=== PATIENT | female | born 1990 | race African-American/Black ===

== ENCOUNTER 2016-12-10 19:59 | Emergency (ER) | payer OTHER ==
[~2016-12-10] VITALS: Ht 157.5 cm; Wt 54.4 kg
[~2016-12-10 19:59] MED LIST: AZAT50TA PO; FLUT9.9S NS; HYDR-971 PO
[2016-12-10 20:29] VITALS: BP 136/67
[2016-12-10] MEDS ORDERED: METH4TAB2 PO (21:02)
[2016-12-10] MEDS ORDERED: TRAM50TA PO (21:02)
--- NOTE | 2016-12-10 21:03 | PHYS DOC ---
Past Medical History Past Medical History: Asthma, Other Additional Past Medical Histor: RHEMATOID ARTHRITIS Past Surgical History: Tonsillectomy Alcohol Use: None Drug Use: None Adult General Chief Complaint Chief Complaint: GENERALIZED BODY ACHES HPI HPI Patient is a 26 year old female presents to the emergency department with complaints of exacerbation of her rheumatoid arthritis. Patient states that she weaned off of her prednisone last week and her pain elevated. She states that she has no fever, nausea, vomiting, chest pain, abdominal pain Review of Systems Review of Systems Constitutional: Denies fever or chills [] Eyes: Denies change in visual acuity, redness, or eye pain [] HENT: Denies nasal congestion or sore throat [] Respiratory: Denies cough or shortness of breath [] Cardiovascular: No additional information not addressed in HPI [] GI: Denies abdominal pain, nausea, vomiting, bloody stools or diarrhea [] : Denies dysuria or hematuria [] Musculoskeletal: Arthralgia Integument: Denies rash or skin lesions [] Neurologic: Denies headache, focal weakness or sensory changes [] Endocrine: Denies polyuria or polydipsia [] Allergies Allergies Allergies Coded Allergies Type Severity Reaction Last Updated Verified No Known Drug Allergies 11/14/14 No Physical Exam Physical Exam Constitutional: Well developed, well nourished, no acute distress, non-toxic appearance. [] HENT: Normocephalic, atraumatic, bilateral external ears normal, oropharynx moist, no oral exudates, nose normal. [] Eyes: PERRLA, EOMI, conjunctiva normal, no discharge. [] Neck: Normal range of motion, no tenderness, supple, no stridor. [] Cardiovascular:Heart rate regular rhythm, no murmur [] Lungs & Thorax: Bilateral breath sounds clear to auscultation [] Abdomen: Bowel sounds normal, soft, no tenderness, no masses, no pulsatile masses. [] Skin: Warm, dry, no erythema, no rash. [] Back: No tenderness, no CVA tenderness. [] Extremities: No swelling to joints, no erythema. She does have chronic deformity to her hands at the joints. Neurovascular is intact distally. Neurologic: Alert and oriented X 3, normal motor function, normal sensory function, no focal deficits noted. [] Psychologic: Affect normal, judgement normal, mood normal. [] Current Patient Data Vital Signs Vital Signs Date Time Temp Pulse Resp B/P (MAP) Pulse Ox O2 Delivery O2 Flow Rate FiO2 12/10/16 20:29 98.1 71 16 100 Room Air 98.1 EKG EKG [] Radiology/Procedures Radiology/Procedures [] Course & Med Decision Making Course & Med Decision Making Pertinent Labs and Imaging studies reviewed. (See chart for details) [] Dragon Disclaimer Dragon Disclaimer This electronic medical record was generated, in whole or in part, using a voice recognition dictation system. Departure Departure Impression: Primary Impression: Polyarthralgia Disposition: HOME, SELF-CARE Condition: STABLE Referrals: UNKNOWN PCP NAME (PCP) Patient Instructions: Chronic Pain Scripts Tramadol Hcl (TRAMADOL HCL) 50 Mg Tablet 1 TAB PO PRN Q6HRS, #12 TAB Prov: VINCE TONEY APRN 12/10/16 Methylprednisolone (MEDROL) 4 Mg Tab.ds.pk 1 PKG PO UD, #1 PKG Prov: VINCE TONEY APRN 12/10/16 VINCE TONEY APRN Dec 10, 2016 21:03
== END 2016-12-10 21:10 | disposition home or self-care (01) ==
LOC: ER 19:59
DX: M25.50 Pain in unspecified joint (principal); M06.9 Rheumatoid arthritis, unspecified; J45.909 Unspecified asthma, uncomplicated
CPT/HCPCS: 99283

== ENCOUNTER 2017-02-20 16:18 | Emergency (ER) | payer OTHER ==
[~2017-02-20] VITALS: Ht 157.5 cm; Wt 56.7 kg
[~2017-02-20 16:18] MED LIST changes: +METH4TAB2 PO; +TRAM50TA PO
[2017-02-20] MEDS ORDERED: DIPHTH,PERTUSS(ACELL),TET TOX 0.5 ML DISP.SYRIN. VAX IM ONE (17:15)
[2017-02-20] MEDS ORDERED: CEPH500T PO (17:20)
--- NOTE | 2017-02-20 17:21 | PHYS DOC ---
Past Medical History Past Medical History: Asthma, Other Additional Past Medical Histor: RHEMATOID ARTHRITIS Past Surgical History: Tonsillectomy Alcohol Use: None Drug Use: None Adult General Chief Complaint Chief Complaint: ABSCESS HPI HPI Patient is a 26 year old female presents to the emergency department stating that she was out on the porch on Sunday and feels that she was bit by something on her right upper abdomen. She states that she has some discomfort in the area appears to be red no drainage or discharge noted patient is unable to provide her last tetanus immunization. Patient denies any fever, chills or any nausea vomiting. Review of Systems Review of Systems Constitutional: Denies fever or chills [] Eyes: Denies change in visual acuity, redness, or eye pain [] HENT: Denies nasal congestion or sore throat [] Respiratory: Denies cough or shortness of breath [] Cardiovascular: No additional information not addressed in HPI [] GI: Denies abdominal pain, nausea, vomiting, bloody stools or diarrhea [] : Denies dysuria or hematuria [] Musculoskeletal: Denies back pain or joint pain [] Integument: Denies rash or skin lesions. Complaint of insect bite to the right upper abdomen area Neurologic: Denies headache, focal weakness or sensory changes [] Endocrine: Denies polyuria or polydipsia [] Allergies Allergies Allergies Coded Allergies Type Severity Reaction Last Updated Verified No Known Drug Allergies 11/14/14 No Physical Exam Physical Exam Constitutional: Well developed, well nourished, no acute distress, non-toxic appearance. [] HENT: Normocephalic, atraumatic, bilateral external ears normal, oropharynx moist, no oral exudates, nose normal. [] Eyes: PERRLA, EOMI, conjunctiva normal, no discharge. [] Neck: Normal range of motion, no tenderness, supple, no stridor. [] Cardiovascular:Heart rate regular rhythm, no murmur [] Lungs & Thorax: Bilateral breath sounds clear to auscultation [] Skin: Warm, dry, no erythema, no rash. Patient with 2 red areas noted to the right upper abdomen area. No drainage or discharge noted, warmth noted. Extremities: No tenderness, no cyanosis, no clubbing, ROM intact, no edema. [] Neurologic: Alert and oriented X 3, normal motor function, normal sensory function, no focal deficits noted. [] Psychologic: Affect normal, judgement normal, mood normal. [] Current Patient Data Vital Signs Vital Signs Date Time Temp Pulse Resp B/P (MAP) Pulse Ox O2 Delivery O2 Flow Rate FiO2 02/20/17 16:29 98.9 84 18 99 Room Air 98.9 Lab Values Laboratory Tests Test 02/20/17 16:33 POC Urine HCG, Qualitative Hcg negative (Negative) EKG EKG [] Radiology/Procedures Radiology/Procedures [] Course & Med Decision Making Course & Med Decision Making Pertinent Labs and Imaging studies reviewed. (See chart for details) Patient will be provided with a tetanus immunization here in the emergency department. She'll be placed on Keflex. Recommendations for Tylenol or ibuprofen for pain and discomfort. Recommended keeping the area clean dry and cool. Patient will be discharged home in stable condition signs symptoms to return back to emergency department as been provided. All questions and concerns been answered at patient's bedside. Patient agrees with discharge instructions treatment regimens and follow-up recommendations. [] Dragon Disclaimer Dragon Disclaimer This electronic medical record was generated, in whole or in part, using a voice recognition dictation system. Departure Departure Impression: Primary Impression: Cellulitis Disposition: HOME, SELF-CARE Condition: STABLE Referrals: UNKNOWN PCP NAME (PCP) Patient Instructions: Cellulitis, [id number] Additional Instructions: Activity as tolerated. Tylenol or ibuprofen for pain and discomfort. Antibiotics as prescribed. Clean the site with soap and water and apply antibiotic ointment twice a day. Keep the area clean dry and cool. Follow-up primary care physician in the next week. Return back to emergency prior signs symptoms of become worse. Scripts Cephalexin (CEPHALEXIN) 500 Mg Tablet 1 TAB PO BID, #20 TAB Prov: RAZ SANTAMARIA HOLE DIGGER OPERATOR 02/20/17 Problem Qualifiers Primary Impression: Cellulitis Site of cellulitis: unspecified site Qualified Codes: L03.90 - Cellulitis, unspecified RAZ SANTAMARIA HOLE DIGGER OPERATOR Feb 20, 2017 17:21
[2017-02-20 17:30] VITALS: BP 119/68
== END 2017-02-20 17:30 | disposition home or self-care (01) ==
LOC: ER 16:18
DX: L03.311 Cellulitis of abdominal wall (principal); J45.909 Unspecified asthma, uncomplicated; M06.9 Rheumatoid arthritis, unspecified
CPT/HCPCS: 81025; 90471; 90715; 99283-25

== ENCOUNTER 2017-05-08 10:42 | Emergency (ER) | payer OTHER ==
[~2017-05-08 10:42] MED LIST changes: +CEPH500T PO
[2017-05-08 11:17] LABS: BILIRUBIN,URINE NEGATIVE (NEG); GLUCOSE,URINE NEGATIVE (NEG); NITRITE,URINE NEGATIVE (NEG); PROTEIN,URINE NEGATIVE (NEG-TRACE)
[2017-05-08 11:25] LABS: RBC,URINE OCC /HPF (0-2)
[2017-05-08 11:26] LABS: BACTERIA,URINE FEW /HPF (0-FEW); SQUAMOUS EPITHELIAL CELL,UR MANY /LPF
[2017-05-08] MEDS ORDERED: METR500T PO (12:42)
--- NOTE | 2017-05-08 13:08 | PHYS DOC ---
Past Medical History Past Medical History: Asthma, Other Additional Past Medical Histor: RHEMATOID ARTHRITIS Past Surgical History: Tonsillectomy Alcohol Use: None Drug Use: None Adult General Chief Complaint Chief Complaint: vaginal discharge HPI HPI Patient is a 26 year old female who presents with vaginal discharge. Pt reports two days of symptoms, no pain, no N/V. Pt is sexually active with 1 partner, uses condoms, does have concerns for possible STD. Review of Systems Review of Systems Constitutional: Denies fever or chills [] Eyes: Denies change in visual acuity, redness, or eye pain [] HENT: Denies nasal congestion or sore throat [] Respiratory: Denies cough or shortness of breath [] Cardiovascular: denies chest pain GI: Denies abdominal pain, nausea, vomiting, bloody stools or diarrhea [] : Denies dysuria or hematuria [] Musculoskeletal: Denies back pain or joint pain [] Integument: Denies rash or skin lesions [] Neurologic: Denies headache, focal weakness or sensory changes [] Allergies Allergies Allergies Coded Allergies Type Severity Reaction Last Updated Verified No Known Drug Allergies 11/14/14 No Physical Exam Physical Exam Constitutional: Well developed, well nourished, no acute distress, non-toxic appearance. [] HENT: Normocephalic, atraumatic, bilateral external ears normal, oropharynx moist, no oral exudates, nose normal. [] Eyes: PERRLA, EOMI, conjunctiva normal, no discharge. [] Neck: Normal range of motion, no tenderness, supple, no stridor. [] Cardiovascular:Heart rate regular rhythm Lungs & Thorax: no respiratory distress Abdomen: soft, no tenderness, no masses, no pulsatile masses. [] Skin: Warm, dry, no erythema, no rash. [] : mild discharge, closed cervix, no CMT, no adnexal mass or ttp, no bleeding Extremities: No tenderness, no cyanosis, no clubbing, ROM intact, no edema. [] Neurologic: Alert and oriented X 3, normal motor function, normal sensory function, no focal deficits noted. [] Psychologic: Affect normal, judgement normal, mood normal. [] Current Patient Data Vital Signs Vital Signs Date Time Temp Pulse Resp B/P (MAP) Pulse Ox O2 Delivery O2 Flow Rate FiO2 05/08/17 11:05 98.6 82 16 100 Room Air 98.6 Lab Values Laboratory Tests Test 05/08/17 11:00 05/08/17 11:03 Urine Collection Type Unknown Urine Color Yellow Urine Clarity Clear Urine pH 7.0 Urine Specific [place] 1.025 Urine Protein Negative mg/dL (NEG-TRACE) Urine Glucose (UA) Negative mg/dL (NEG) Urine Ketones (Stick) Negative mg/dL (NEG) Urine Blood Negative (NEG) Urine Nitrite Negative (NEG) Urine Bilirubin Negative (NEG) Urine Urobilinogen Dipstick 1.0 mg/dL (0.2 mg/dL) Urine Leukocyte Esterase Negative (NEG) Urine RBC Occ /HPF (0-2) Urine WBC 1-4 /HPF (0-4) Urine Squamous Epithelial Cells Many /LPF Urine Bacteria Few /HPF (0-FEW) Urine Mucus Marked /LPF POC Urine HCG, Qualitative Hcg negative (Negative) Microbiology 05/08/17 Wet Prep - Final, Complete EKG EKG [] Radiology/Procedures Radiology/Procedures [] Course & Med Decision Making Course & Med Decision Making Pertinent Labs and Imaging studies reviewed. (See chart for details) wet mount + bv, pt dc'd with flagyl rx, instructed to f/u with pcp, referral sheet given. Dragon Disclaimer Dragon Disclaimer This electronic medical record was generated, in whole or in part, using a voice recognition dictation system. Departure Departure Impression: Primary Impression: Bacterial vaginosis Disposition: 01 HOME, SELF-CARE Condition: STABLE Referrals: UNKNOWN PCP NAME (PCP) See referral sheet to schedule follow-up with a primary care physician to ensure your symptoms are well controlled. Return for worsening symptoms. Take antibiotics until completed. Patient Instructions: Bacterial Vaginosis, [id number] Scripts Metronidazole (FLAGYL) 500 Mg Tablet 1 TAB PO BID, #14 TAB Prov: MANNIE WADE MD 05/08/17 MANNIE WADE MD May 08, 2017 13:08
== END 2017-05-08 13:10 | disposition home or self-care (01) ==
LOC: ER 10:42
DX: N76.0 Acute vaginitis (principal); B96.89 Other specified bacterial agents as the cause of diseases classified elsewhere; J45.909 Unspecified asthma, uncomplicated; M06.9 Rheumatoid arthritis, unspecified
CPT/HCPCS: 81001; 81025; 87491; 87591; 99284; Q0111

== ENCOUNTER 2018-05-25 16:50 | Emergency (ER) | payer MEDICARE, OTHER ==
[~2018-05-25] VITALS: Ht 157.5 cm; Wt 59.0 kg
[~2018-05-25 16:50] MED LIST changes: +HYDR-3164 PO; -HYDR-971 PO; +METR500T PO
[2018-05-25 17:50] VITALS: BP 126/72
[2018-05-25 18:40] LABS: BILIRUBIN,URINE NEGATIVE (NEG); CLARITY,URINE CLOUDY; COLOR,URINE YELLOW; NITRITE,URINE NEGATIVE (NEG); PH,URINE 8.5; PROTEIN,URINE 30 mg/dL (NEG-TRACE)
[2018-05-25 18:55] LABS: BACTERIA,URINE MANY /HPF (0-FEW); SQUAMOUS EPITHELIAL CELL,UR MANY /LPF; WBC,URINE TNTC /HPF (0-4)
--- NOTE | 2018-05-25 19:07 | PHYS DOC ---
Past Medical History Past Medical History: Asthma, Other Additional Past Medical Histor: RHEMATOID ARTHRITIS Past Surgical History: Tonsillectomy Additional Information: 5 CIGARETTES PER DAY Alcohol Use: None Drug Use: None Adult General Chief Complaint Chief Complaint: VAGINAL PROBLEM HPI HPI Patient is a 27 year old female who presents with vaginal itching with watery discharge and this itching that is its worse at night. Patient states she's tried Monistat but did not help. Her period ended on Sunday. She is sexually active but states she does use condoms. Review of Systems Review of Systems Constitutional: Denies fever or chills [] Eyes: Denies change in visual acuity, redness, or eye pain [] HENT: Denies nasal congestion or sore throat [] Respiratory: Denies cough or shortness of breath [] Cardiovascular: No additional information not addressed in HPI [] GI: Denies abdominal pain, nausea, vomiting, bloody stools or diarrhea [] : Vaginal itching and discharge. Denies dysuria or hematuria [] Musculoskeletal: Denies back pain or joint pain [] Integument: Denies rash or skin lesions [] Neurologic: Denies headache, focal weakness or sensory changes [] Endocrine: Denies polyuria or polydipsia [] All other systems were reviewed and found to be within normal limits, except as documented in this note. Current Medications Current Medications Current Medications Medications (Trade) Dose Ordered Sig/Jessica Start Time Stop Time Status Last Admin Dose Admin Azithromycin (Zithromax) 1,000 mg 1X ONCE 05/25/18 19:15 05/25/18 19:16 05/25/18 19:10 1,000 MG Ceftriaxone Sodium (Rocephin Im) 250 mg 1X ONCE 05/25/18 19:15 05/25/18 19:16 05/25/18 19:10 250 MG Allergies Allergies Allergies Coded Allergies Type Severity Reaction Last Updated Verified No Known Drug Allergies 11/14/14 No Physical Exam Physical Exam Constitutional: Well developed, well nourished, no acute distress, non-toxic appearance. [] HENT: Normocephalic, atraumatic, bilateral external ears normal, oropharynx moist, no oral exudates, nose normal. [] Eyes: PERRLA, EOMI, conjunctiva normal, no discharge. [] Neck: Normal range of motion, no tenderness, supple, no stridor. [] Cardiovascular:Heart rate regular rhythm, no murmur [] Lungs & Thorax: Bilateral breath sounds clear to auscultation [] Abdomen: Vaginal white/ yoo, watery vaginal discharge. Bowel sounds normal, soft , no tenderness, no masses, no pulsatile masses. [] Skin: Warm, dry, no erythema, no rash. [] Back: No tenderness, no CVA tenderness. [] Extremities: No tenderness, no cyanosis, no clubbing, ROM intact, no edema. [] Neurologic: Alert and oriented X 3, normal motor function, normal sensory function, no focal deficits noted. [] Psychologic: Affect normal, judgement normal, mood normal. [] Current Patient Data Vital Signs Vital Signs Date Time Temp Pulse Resp B/P (MAP) Pulse Ox O2 Delivery O2 Flow Rate FiO2 05/25/18 17:50 98.0 84 14 126/72 (90) 99 Room Air 98.0 Lab Values Laboratory Tests Test 05/25/18 18:30 05/25/18 18:34 Urine Collection Type Unknown Urine Color Yellow Urine Clarity Cloudy Urine pH 8.5 Urine Specific [place] >=1.030 Urine Protein 30 mg/dL (NEG-TRACE) Urine Glucose (UA) Negative mg/dL (NEG) Urine Ketones (Stick) Negative mg/dL (NEG) Urine Blood Negative (NEG) Urine Nitrite Negative (NEG) Urine Bilirubin Negative (NEG) Urine Urobilinogen Dipstick 1.0 mg/dL (0.2 mg/dL) Urine Leukocyte Esterase Large (NEG) Urine RBC 6-10 /HPF (0-2) Urine WBC Tntc /HPF (0-4) Urine Squamous Epithelial Cells Many /LPF Urine Bacteria Many /HPF (0-FEW) Urine Mucus Marked /LPF POC Urine HCG, Qualitative Hcg negative (Negative) Microbiology 05/25/18 Wet Prep - Final, Complete EKG EKG [] Radiology/Procedures Radiology/Procedures [] Course & Med Decision Making Course & Med Decision Making Patient is a 27 year old female who presents with vaginal itching with watery discharge and this itching that is its worse at night. Patient states she's tried Monistat but did not help. Her period ended on Sunday. She is sexually active but states she does use condoms. A pelvic exam was attempted 4 times and patient was very tense states it did not hurt but she is very tense and the speculum could not go all the way in due to this. I did however see watery white /yoo in color vaginal discharged. Patient states that the exam did not hurt but she is a hard time relaxing. BiManual exam was negative for any cervical motion pain and did not feel any foreign objects in the vaginal vault. I could not however see the cervix with speculum due to patient being very tense. Afebrile. Abdomen is soft and nontender. She denies any abdominal pain or dysuria. She denies any nausea vomiting or running fevers at home. Patient has chosen to be treated prophylactically for sexually transmitted diseases today. I did send off a culture for chlamydia and gonorrhea and I did do a wet mount today. Wet mount is positive for Trichomonas. She'll be treated with Flagyl. Patient is notified that she'll be called in 48 hours if gonorrhea or chlamydia comes back positive. The patient begins having any intense abdominal pain starts running a fever and she needs to return back to the ED. Dragon Disclaimer Dragon Disclaimer This electronic medical record was generated, in whole or in part, using a voice recognition dictation system. Departure Departure Impression: Primary Impression: Sexually transmitted disease Disposition: 01 HOME, SELF-CARE Condition: STABLE Referrals: UNKNOWN PCP NAME (PCP) Patient Instructions: Sexually Transmitted Disease Additional Instructions: Return to the ED if he began having pelvic pain, fever, vomiting. Do not drink any alcohol while on the medication they have been prescribed as it will make you very sick. Either follow-up with a stitcher around or your primary care. Scripts Metronidazole (METRONIDAZOLE) 500 Mg Tablet 1 TAB PO BID, #14 TAB Prov: RAZ LINDA APRN 05/25/18 RAZ LINDA APRN May 25, 2018 19:07
[2018-05-25] MEDS ORDERED: cefTRIAXone IM 250 MG VIAL IM ONE (19:15)
[2018-05-25] MEDS ORDERED: AZITHROMYCIN 250 MG TABLET. PO ONE (19:15)
[2018-05-25] MEDS ORDERED: METR-84 PO (19:19)
[2018-05-27 19:13] LABS: GC PROBE Negative (Negative)
== END 2018-05-25 19:30 | disposition home or self-care (01) ==
LOC: ER 16:50
DX: A64 Unspecified sexually transmitted disease (principal); J45.909 Unspecified asthma, uncomplicated; Z90.89 Acquired absence of other organs; F17.210 Nicotine dependence, cigarettes, uncomplicated
CPT/HCPCS: 81001; 81025; 87491; 87591; 96372; 99283; J0696; Q0111; Q0144

== ENCOUNTER 2019-05-11 04:52 | Emergency (ER) | payer MEDICARE, OTHER ==
[~2019-05-11] VITALS: Ht 157.5 cm; Wt 53.1 kg
[~2019-05-11 04:52] MED LIST changes: +METR-34 PO
[2019-05-11 05:10] VITALS: BP 142/63
[2019-05-11 05:43] LABS: BASO # 0.1 x10^3/uL (0.0-0.2); BASO % 1 % (0-3); EOS # 0.2 x10^3/uL (0.0-0.7); EOS % 2 % (0-3); HEMATOCRIT 32.5 % (36.0-47.0); HEMOGLOBIN 10.3 g/dL (12.0-15.5); LYMPH # 1.9 x10^3/uL (1.0-4.8); LYMPH % 22 % (24-48); MEAN CORPUSCULAR HEMOGLOBIN 25 pg (25-35); MEAN CORPUSCULAR HGB CONC 32 g/dL (31-37); MEAN CORPUSCULAR VOLUME 78 fL (79-100); MONO # 0.6 x10^3/uL (0.0-1.1); MONO % 7 % (0-9); NEUT # 6.2 x10^3/uL (1.8-7.7); NEUT % 69 % (31-73); PLATELET COUNT 207 x10^3/uL (140-400); RED BLOOD COUNT 4.16 x10^6/uL (3.50-5.40); RED CELL DISTRIBUTION WIDTH 20.1 % (11.5-14.5)
--- NOTE | 2019-05-11 05:47 | PHYS DOC ---
Past Medical History Past Medical History: Asthma, Other Additional Past Medical Histor: RHEMATOID ARTHRITIS (JIGNESH BHAKTA DO) Past Surgical History: Tonsillectomy (JIGNESH BHAKTA DO) Alcohol Use: None Drug Use: None (JIGNESH BHAKTA DO) Adult General Chief Complaint Chief Complaint: ABDOMINAL PAIN IN HPI HPI Patient is a 28 year old G5, P4, estimated 6 week gestation AA female who presents with migratory pelvic pain, cramping 2 days. Pain is sharp and intense for brief periods time. White vaginal discharge and vaginal spotting last week. No fever chills, sweats, flank pain. No other acute symptoms or complaints[] (JIGNESH BHAKTA DO) Review of Systems Review of Systems Review of symptoms as per history of present illness. All other review symptoms are negative. All other systems were reviewed and found to be within normal limits, except as documented in this note. (JIGNESH BHAKTA DO) Allergies Allergies Allergies Coded Allergies Type Severity Reaction Last Updated Verified No Known Drug Allergies 11/14/14 No (JASMYN NOVAK MD) Physical Exam Physical Exam Constitutional: Well developed, well nourished, no acute distress, non-toxic appearance. [] HENT: Normocephalic, atraumatic, bilateral external ears normal, oropharynx moist, no oral exudates, nose normal. [] Eyes: PERRLA, EOMI, conjunctiva normal, no discharge. [] Neck: Normal range of motion, no tenderness, supple, no stridor. [] Cardiovascular:Heart rate regular rhythm, no murmur [] Lungs & Thorax: Bilateral breath sounds clear to auscultation [] Abdomen: Bowel sounds normal, soft, no tenderness. [] : Sternal genitalia, normal, vaginal, cheeselike discharge with thin siddiqi mucus at cervix, min ttp. [] Back: No tenderness, no CVA tenderness. [] Extremities: No tenderness, no cyanosis, no clubbing, ROM intact, no edema. [] Neurologic: Alert and oriented X 3, normal motor function, normal sensory function, no focal deficits noted. [] Psychologic: Affect normal, judgement normal, mood normal. [] (JIGNESH BHAKTA DO) Current Patient Data Vital Signs Vital Signs Date Time Temp Pulse Resp B/P (MAP) Pulse Ox O2 Delivery O2 Flow Rate FiO2 05/11/19 05:10 97.9 83 14 142/63 (89) 100 Room Air 97.9 (JASMYN NOVAK MD) Lab Values Laboratory Tests Test 05/11/19 05:10 05/11/19 05:30 POC Urine HCG, Qualitative Hcg positive (Negative) White Blood Count 9.0 x10^3/uL (4.0-11.0) Red Blood Count 4.16 x10^6/uL (3.50-5.40) Hemoglobin 10.3 g/dL (12.0-15.5) L Hematocrit 32.5 % (36.0-47.0) L Mean Corpuscular Volume 78 fL (79-100) L Mean Corpuscular Hemoglobin 25 pg (25-35) Mean Corpuscular Hemoglobin Concent 32 g/dL (31-37) Red Cell Distribution Width 20.1 % (11.5-14.5) H Platelet Count 207 x10^3/uL (140-400) Neutrophils (%) (Auto) 69 % (31-73) Lymphocytes (%) (Auto) 22 % (24-48) L Monocytes (%) (Auto) 7 % (0-9) Eosinophils (%) (Auto) 2 % (0-3) Basophils (%) (Auto) 1 % (0-3) Neutrophils # (Auto) 6.2 x10^3/uL (1.8-7.7) Lymphocytes # (Auto) 1.9 x10^3/uL (1.0-4.8) Monocytes # (Auto) 0.6 x10^3/uL (0.0-1.1) Eosinophils # (Auto) 0.2 x10^3/uL (0.0-0.7) Basophils # (Auto) 0.1 x10^3/uL (0.0-0.2) Platelet Estimate Pending Urine Collection Type Unknown Urine Color Yellow Urine Clarity Clear Urine pH 6.0 Urine Specific [place] 1.020 Urine Protein Negative mg/dL (NEG-TRACE) Urine Glucose (UA) Negative mg/dL (NEG) Urine Ketones (Stick) 15 mg/dL (NEG) Urine Blood Negative (NEG) Urine Nitrite Negative (NEG) Urine Bilirubin Negative (NEG) Urine Urobilinogen Dipstick 1.0 mg/dL (0.2 mg/dL) Urine Leukocyte Esterase Negative (NEG) Urine RBC 0 /HPF (0-2) Urine WBC 0 /HPF (0-4) Urine Squamous Epithelial Cells Mod /LPF Urine Bacteria 0 /HPF (0-FEW) Urine Mucus Mod /LPF Maternal Serum HCG Beta Subunit 9113 mIU/mL (0-5) H Sodium Level 137 mmol/L (136-145) Potassium Level 3.9 mmol/L (3.5-5.1) Chloride Level 103 mmol/L (98-107) Carbon Dioxide Level 23 mmol/L (21-32) Anion Gap 11 (6-14) Blood Urea Nitrogen 10 mg/dL (7-20) Creatinine 0.6 mg/dL (0.6-1.0) Estimated GFR (Cockcroft-Gault) 144.0 Glucose Level 82 mg/dL (70-99) Calcium Level 8.8 mg/dL (8.5-10.1) Laboratory Tests 05/11/19 05:30 Laboratory Tests 05/11/19 05:30 Microbiology 05/11/19 Wet Prep - Final, Complete (JASMYN NOVAK MD) EKG EKG [] (JIGNESH BHAKTA DO) Radiology/Procedures Radiology/Procedures [OB US:] (JIGNESH BHAKTA DO) Radiology/Procedures [facility] [address] [place] [address] IMAGING REPORT Signed PATIENT: RADHA HWANG ACCOUNT: [id number] : 1990 LOCATION: ER AGE: 28 SEX: F EXAM STATUS: REG ER ORD. PHYSICIAN: JIGNESH BHAKTA DO REASON: pelvic pain PROCEDURE: OB <14 WKS W/TV Examination: Obstetric ultrasound less than 14 weeks HISTORY: History of pelvic pain COMPARISON: None available. FINDINGS: The uterus measures 11.0 x 6.4 x 6.0 cm. Simple free fluid identified in the cul-de-sac. The right ovary measures 3.0 x 1.8 x 1.6 cm. The left ovary measures 3.5 x 2.2 x 1.6 cm. Given LMP 03/29/2019. Cystic structure identified in the uterus could be the gestational sac or pseudogestational sac measuring 0.82 cm corresponding to 5 weeks and 4 days. A pole or yolk sac is not identified. Clinical age of 6 weeks and 1 day with estimated date of delivery 01/03/2020 by LMP. Ultrasound age is 5 weeks and 4 days with estimated date of delivery by ultrasound 01/07/2020. IMPRESSION: 1. Cystic structure identified in the uterus probably intrauterine gestational sac without pole, possibly early and less likely a pseudogestational sac of ectopic . An ectopic gestation sac is not identified. Close interval follow-up examination and follow-up serial quantitative beta-hCG levels is recommended. Electronically signed by: Zaki Carreon MD (05/11/2019 7:03 AM) [facility] DICTATED and SIGNED BY: ZAKI CARREON MD DATE: 05/11/19 07 (JASMYN NOVAK MD) Course & Med Decision Making Course & Med Decision Making Pertinent Labs and Imaging studies reviewed. (See chart for details) [Labs, ultrasound pending. Care will be endorsed to Dr. Novak at 06:00 for management and disposition.] (JIGNESH BHAKTA DO) Course & Med Decision Making Evaluation of patient in ER showed 28-year-old female patient at 6 weeks of gestation with complaining of abdominal pain without vaginal bleeding. Patient had hCG level of 9100 and ultrasound showed intrauterine gestational sac without heart rate or ectopic . Patient was advised to follow up with her [employer] for repeat hCG level in 48 hours and return to ER if not getting worse. (JASMYN NOVAK MD) Dragon Disclaimer Dragon Disclaimer This electronic medical record was generated, in whole or in part, using a voice recognition dictation system. (JIGNESH BHAKTA DO) Departure Departure Impression: Primary Impression: Abdominal pain during Disposition: HOME, SELF-CARE (at 0730) Condition: STABLE Referrals: UNKNOWN PCP NAME (PCP) ANAYELI SAGE Jr, MD Patient Instructions: Abdominal Pain During Additional Instructions: Follow up with your [employer] in 2 days for repeating blood test for hCG level(currently is 9100) Drink plenty of liquids Return to ER if not getting better May take Tylenol as needed for pain Problem Qualifiers Primary Impression: Abdominal pain during Trimester: first trimester Qualified Codes: O26.891 - Other specified related conditions, first trimester; R10.9 - Unspecified abdominal pain JIGNESH BHAKTA DO May 11, 2019 05:47 JASMYN NOVAK MD May 11, 2019 07:32
[2019-05-11 05:54] LABS: CALCIUM 8.8 mg/dL (8.5-10.1); CREATININE 0.6 mg/dL (0.6-1.0); POTASSIUM 3.9 mmol/L (3.5-5.1)
[2019-05-11 06:17] LABS: BACTERIA,URINE 0 /HPF (0-FEW); BILIRUBIN,URINE NEGATIVE (NEG); CLARITY,URINE CLEAR; COLOR,URINE YELLOW; NITRITE,URINE NEGATIVE (NEG); PROTEIN,URINE NEGATIVE (NEG-TRACE); RBC,URINE 0 /HPF (0-2); SQUAMOUS EPITHELIAL CELL,UR MOD /LPF; WBC,URINE 0 /HPF (0-4)
--- NOTE | 2019-05-11 07:05 | RAD ---
Examination: Obstetric ultrasound less than 14 weeks HISTORY: History of pelvic pain COMPARISON: None available. FINDINGS: The uterus measures 11.0 x 6.4 x 6.0 cm. Simple free fluid identified in the cul-de-sac. The right ovary measures 3.0 x 1.8 x 1.6 cm. The left ovary measures 3.5 x 2.2 x 1.6 cm. Given LMP 03/29/2019. Cystic structure identified in the uterus could be the gestational sac or pseudogestational sac measuring 0.82 cm corresponding to 5 weeks and 4 days. A pole or yolk sac is not identified. Clinical age of 6 weeks and 1 day with estimated date of delivery 01/03/2020 by LMP. Ultrasound age is 5 weeks and 4 days with estimated date of delivery by ultrasound 01/07/2020. IMPRESSION: 1. Cystic structure identified in the uterus probably intrauterine gestational sac without pole, possibly early and less likely a pseudogestational sac of ectopic . An ectopic gestation sac is not identified. Close interval follow-up examination and follow-up serial quantitative beta-hCG levels is recommended. Electronically signed by: Zaki Carreon MD (05/11/2019 7:03 AM) [facility]
[2019-05-11 14:26] LABS: ANISOCYTOSIS MOD; HYPOCHROMIA SLIGHT; MICROCYTOSIS SLIGHT; OVALOCYTES FEW; PLT ESTIMATE ADEQUATE (ADEQUATE); POIKILOCYTOSIS SLIGHT; SCHISTOCYTES FEW
[2019-05-13 23:08] LABS: GC PROBE Negative (Negative)
== END 2019-05-11 07:40 | disposition home or self-care (01) ==
LOC: ER 04:52
DX: O26.891 Other specified pregnancy related conditions, first trimester (principal); R10.9 Unspecified abdominal pain; R10.2 Pelvic and perineal pain; O99.511 Diseases of the respiratory system complicating pregnancy, first trimester; J45.909 Unspecified asthma, uncomplicated; Z3A.01 Less than 8 weeks gestation of pregnancy
CPT/HCPCS: 36415; 76801; 76817; 80048; 81001; 81025; 84702; 85025; 86901; 87491; 87591; 99285; Q0111

== ENCOUNTER 2019-10-18 20:20 | Emergency (ER) | payer MEDICARE, OTHER ==
[~2019-10-18] VITALS: Ht 157.5 cm; Wt 57.7 kg
[2019-10-18] MEDS ORDERED: ERYTHROMYCIN 0.5% OPHTH OINTMENT 1GM TUBE. OS STA (20:35)
[2019-10-18 20:36] VITALS: BP 131/66
--- NOTE | 2019-10-18 20:38 | PHYS DOC ---
Past Medical History Past Medical History: Asthma, Other Additional Past Medical Histor: RHEMATOID ARTHRITIS Past Surgical History: Tonsillectomy Smoking Status: Current Every Day Smoker Alcohol Use: None Drug Use: None General Adult EDM: Chief Complaint: EYE PROBLEMS HPI: HPI: Patient is a 28 year old female who presents with complaint of left eye pain and redness for the last 2 days. Patient indicates that the last 2 mornings her eye has been crusted over. She denies any fever. She denies any cough, shortness of breath, nausea or vomiting. Patient denies any change in vision. [] Review of Systems: Review of Systems: Constitutional: Denies fever or chills. [] Eyes: Denies change in visual acuity. Positive left eye pain and redness. [] HENT: Denies nasal congestion or sore throat. [] Respiratory: Denies cough or shortness of breath. [] Cardiovascular: Denies chest pain or edema. [] Heart Score: Risk Factors: Risk Factors: DM, Current or recent (<one month) smoker, HTN, HLP, family hist ory of CAD, obesity. Risk Scores: Score 0 - 3: 2.5% MACE over next 6 weeks - Discharge Home Score 4 - 6: 20.3% MACE over next 6 weeks - Admit for Clinical Observation Score 7 - 10: 72.7% MACE over next 6 weeks - Early Invasive Strategies Allergies: Allergies: Allergies Coded Allergies Type Severity Reaction Last Updated Verified No Known Drug Allergies 11/14/14 No Physical Exam: PE: Constitutional: Well developed, well nourished, no acute distress, non-toxic appearance. [] HENT: Normocephalic, atraumatic, bilateral external ears normal, oropharynx moist, no oral exudates, nose normal. [] Eyes: PERRLA, EOMI, conjunctive is injected with purulent exudate. [] Neck: Normal range of motion, no tenderness, supple, no stridor. [] Cardiovascular:Heart rate regular rhythm, no murmur [] Lungs & Thorax: Bilateral breath sounds clear to auscultation [] EKG: EKG: [] Radiology/Procedures: Radiology/Procedures: [] Course & Med Decision Making: Course & Med Decision Making Pertinent Labs and Imaging studies reviewed. (See chart for details) [] Dragon Disclaimer: Dragon Disclaimer: This electronic medical record was generated, in whole or in part, using a voice recognition dictation system. Departure Departure Impression: Primary Impression: Conjunctivitis Qualified Codes: H10.32 - Unspecified acute conjunctivitis, left eye Disposition: HOME, SELF-CARE Condition: STABLE Referrals: UNKNOWN PCP NAME (PCP) Patient Instructions: Bacterial Conjunctivitis Scripts Erythromycin Base (Erythromycin) 1 Gm Oint...g. 0.5 INCH OS TID, #3.5 GM Prov: PADDY MCKENZIE Jr. DO 10/18/19 PADDY MCKENZIE Jr. DO October 18, 2019 20:38
[2019-10-18] MEDS ORDERED: ERYT1OIN6 OS (20:41)
== END 2019-10-18 20:50 | disposition home or self-care (01) ==
LOC: ER 20:20
DX: H10.32 Unspecified acute conjunctivitis, left eye (principal); J45.909 Unspecified asthma, uncomplicated; F17.200 Nicotine dependence, unspecified, uncomplicated
CPT/HCPCS: 99283

== ENCOUNTER 2020-01-28 13:51 | Emergency (ER) | payer MEDICARE, OTHER ==
[~2020-01-28] VITALS: Ht 162.6 cm; Wt 50.0 kg
[~2020-01-28 13:51] MED LIST changes: +ERYT1OIN6 OS
[2020-01-28 17:10] VITALS: BP 122/66
--- NOTE | 2020-01-28 17:28 | PHYS DOC ---
Past Medical History Past Medical History: Asthma, Other Additional Past Medical Histor: RHEMATOID ARTHRITIS (RAZ LINDA APRN) Past Surgical History: Tonsillectomy (RAZ LINDA APRN) Smoking Status: Current Every Day Smoker Alcohol Use: None Drug Use: None (RAZ LINDA APRN) General Adult EDM: Chief Complaint: VAGINAL PROBLEM HPI: HPI: Patient is a 29 year old female who presents with patient is 7 weeks. She states that she had her vaginal bleeding and that has stopped and she now has vaginal fishy odor smelling white discharge. She states vaginal discharge and smell have been going on for the last week. She states she has no sexually transmitted disease concerns. She states she has not had sexual intercourse. She states that she was checked while she was for STDs and was negative. Patient denies dysuria, fever, back pain, vaginal itching, abdominal pain, nausea, vomiting, diarrhea, chest pain, shortness of air, numbness or tingling. (RAZ LINDA INVESTMENT ACCOUNTING CLERK) Review of Systems: Review of Systems: Constitutional: Denies fever or chills. [] Eyes: Denies change in visual acuity. [] HENT: Denies nasal congestion or sore throat. [] Respiratory: Denies cough or shortness of breath. [] Cardiovascular: Denies chest pain or edema. [] GI: Denies abdominal pain, nausea, vomiting, bloody stools or diarrhea. [] : Denies dysuria. vaginal odor with discharge[] Musculoskeletal: Denies back pain or joint pain. [] Integument: Denies rash. [] Neurologic: Denies headache, focal weakness or sensory changes. [] Endocrine: Denies polyuria or polydipsia. [] Lymphatic: Denies swollen glands. [] Psychiatric: Denies depression or anxiety. [] (RAZ LINDA INVESTMENT ACCOUNTING CLERK) Heart Score: Risk Factors: Risk Factors: DM, Current or recent (<one month) smoker, HTN, HLP, family history of CAD, obesity. Risk Scores: Score 0 - 3: 2.5% MACE over next 6 weeks - Discharge Home Score 4 - 6: 20.3% MACE over next 6 weeks - Admit for Clinical Observation Score 7 - 10: 72.7% MACE over next 6 weeks - Early Invasive Strategies (RAZ LINDA APRN) Allergies: Allergies: Allergies Coded Allergies Type Severity Reaction Last Updated Verified No Known Drug Allergies 11/14/14 No (RAZ LINDA APRN) Physical Exam: PE: Constitutional: Well developed, well nourished, no acute distress, non-toxic appearance. [] HENT: Normocephalic, atraumatic, bilateral external ears normal, oropharynx moist, no oral exudates, nose normal. [] Eyes: PERRLA, EOMI, conjunctiva normal, no discharge. [] Neck: Normal range of motion, no tenderness, supple, no stridor. [] Cardiovascular:Heart rate regular rhythm, no murmur [] Lungs & Thorax: Bilateral breath sounds clear to auscultation [] Abdomen: Bowel sounds normal, soft, no tenderness, no masses, no pulsatile masses. [] Skin: Warm, dry, no erythema, no rash. [] Back: No tenderness, no CVA tenderness. [] Extremities: No tenderness, no cyanosis, no clubbing, ROM intact, no edema. [] Neurologic: Alert and oriented X 3, normal motor function, normal sensory function, no focal deficits noted. [] Psychologic: Affect normal, judgement normal, mood normal. Normal Physical Exam [] (RAZ LINDA APRN) EKG: EKG: [] (RAZ LINDA APRN) Radiology/Procedures: Radiology/Procedures: [] (RAZ LINDA APRN) Course & Med Decision Making: Course & Med Decision Making Pertinent Labs and Imaging studies reviewed. (See chart for details) See HPI. Alert and oriented x4. Speaks in full complete sentences. Ambulatory with a steady gait. Abdomen is soft and nontender. Skin pink warm and dry. Pelvic Exam: Materials And Corrosion Engineer present Abdomen: Nontender External Genitalia: Normal Skin Speculum: Normal vaginal mucosa, normal cervical discharge Bimanual: No adnexal masses or tenderness, No CMT [] (RAZ LINDA INVESTMENT ACCOUNTING CLERK) Dragon Disclaimer: Dragon Disclaimer: This electronic medical record was generated, in whole or in part, using a voice recognition dictation system. (RAZ LINDA APRN) Departure Departure Impression: Primary Impression: Bacterial vaginosis Disposition: 01 HOME, SELF-CARE Condition: STABLE Referrals: UNKNOWN PCP NAME (PCP) Patient Instructions: Bacterial Vaginosis, [id number] Additional Instructions: Follow-up with your OB doctor as soon as possible. Take medication as prescribed and with food. Scripts Metronidazole (METRONIDAZOLE) 500 Mg Tablet 1 TAB PO BID for 7 Days, #14 TAB 0 Refills Prov: RAZ LINDA APRN 01/28/20 Justicifation of Admission Dx: Justifications for Admission: Justification of Admission Dx: N/A (RAZ LINDA APRN) Attending Signature Attending Signature I have reviewed the PA/WRAPPER HANDS SPRAYER's note and plan of care. I was available for consultation as needed at all times during the patient's visit in the emergency department. I agree with the clinical impression, plan and disposition. (DANIEL JAMES DO) RAZ LINDA APRN Jan 28, 2020 17:28 DANIEL JAMES DO Jan 30, 2020 09:22
[2020-01-28 17:33] LABS: BILIRUBIN,URINE NEGATIVE (NEG); CLARITY,URINE CLEAR; COLOR,URINE YELLOW; NITRITE,URINE NEGATIVE (NEG); PH,URINE 5.5 (<5.0-8.0); PROTEIN,URINE NEGATIVE (NEG-TRACE)
[2020-01-28 17:43] LABS: BACTERIA,URINE MANY /HPF (0-FEW); SQUAMOUS EPITHELIAL CELL,UR MOD /LPF
[2020-01-28 17:45] LABS: RBC,URINE 0 /HPF (0-2); WBC,URINE RARE /HPF (0-4)
[2020-01-28] MEDS ORDERED: METR-34 PO (18:06)
[2020-01-29 19:09] LABS: GC PROBE Negative (Negative)
== END 2020-01-28 17:50 | disposition home or self-care (01) ==
LOC: ER 13:51
DX: N76.0 Acute vaginitis (principal); B96.89 Other specified bacterial agents as the cause of diseases classified elsewhere; J45.909 Unspecified asthma, uncomplicated; F17.200 Nicotine dependence, unspecified, uncomplicated
CPT/HCPCS: 81001; 81025; 87086; 87491; 87591; 99284; Q0111

== ENCOUNTER 2020-04-28 18:08 | Emergency (ER) | payer MEDICARE, OTHER ==
[~2020-04-28] VITALS: Ht 167.6 cm; Wt 52.2 kg
[2020-04-28 18:17] VITALS: BP 112/58
[2020-04-28 18:37] LABS: BILIRUBIN,URINE NEGATIVE (NEG); CLARITY,URINE CLEAR; COLOR,URINE YELLOW; NITRITE,URINE NEGATIVE (NEG); PROTEIN,URINE NEGATIVE (NEG-TRACE)
[2020-04-28 18:56] LABS: BACTERIA,URINE FEW /HPF (0-FEW); RBC,URINE 0 /HPF (0-2)
[2020-04-28] MEDS ORDERED: METR500T PO (20:00)
--- NOTE | 2020-04-28 20:01 | PHYS DOC ---
Past Medical History Past Medical History: Asthma, Other Additional Past Medical Histor: RHEMATOID ARTHRITIS Past Surgical History: Tonsillectomy Smoking Status: Current Every Day Smoker Alcohol Use: None Drug Use: None General Adult EDM: Chief Complaint: VAGINAL PROBLEM HPI: HPI: Patient is a 29 year old female with history of asthma presenting today complaining of vaginal discharge for 2 days. Patient describes the discharge as white and odorous. Denies any concerns for STDs. Denies any chance she is . She states her last menstrual cycle was April 03, 2020. She reports she is a 5 para 5. Review of Systems: Review of Systems: Constitutional: Denies fever or chills. [] Eyes: Denies change in visual acuity. [] HENT: Denies nasal congestion or sore throat. [] Respiratory: Denies cough or shortness of breath. [] Cardiovascular: Denies chest pain or edema. [] GI: Reports vaginal discharge. Denies abdominal pain, nausea, vomiting, bloody stools or diarrhea. [] : Denies dysuria. [] Musculoskeletal: Denies back pain or joint pain. [] Integument: Denies rash. [] Neurologic: Denies headache, focal weakness or sensory changes. [] Psychiatric: Denies depression or anxiety. [] Heart Score: Risk Factors: Risk Factors: DM, Current or recent (<one month) smoker, HTN, HLP, family history of CAD, obesity. Risk Scores: Score 0 - 3: 2.5% MACE over next 6 weeks - Discharge Home Score 4 - 6: 20.3% MACE over next 6 weeks - Admit for Clinical Observation Score 7 - 10: 72.7% MACE over next 6 weeks - Early Invasive Strategies Allergies: Allergies: Allergies Coded Allergies Type Severity Reaction Last Updated Verified No Known Drug Allergies 11/14/14 No Physical Exam: PE: Constitutional: Well developed, well nourished, no acute distress, non-toxic appearance. [] HENT: Normocephalic, atraumatic, bilateral external ears normal, oropharynx moist, no oral exudates, nose normal. [] Eyes: PERRLA, EOMI, conjunctiva normal, no discharge. [] Neck: Normal range of motion, no tenderness, supple, no stridor. [] Cardiovascular:Heart rate regular rhythm, no murmur [] Lungs & Thorax: Bilateral breath sounds clear to auscultation [] Abdomen: Bowel sounds normal, soft, no tenderness, no masses, no pulsatile masses. [] Pelvic exam External pelvic appears normal, cervix is visualized, closed, no CMT, no adnexal tenderness, mild amount of white discharge in the vaginal vault. Skin: Warm, dry, no erythema, no rash. [] Back: No tenderness, no CVA tenderness. [] Extremities: No tenderness, no cyanosis, no clubbing, ROM intact, no edema. [] Neurologic: Alert and oriented X 3, normal motor function, normal sensory function, no focal deficits noted. [] Psychologic: Affect normal, judgement normal, mood normal. [] Current Patient Data: Labs: Laboratory Tests Test 04/28/20 18:12 04/28/20 18:16 Urine Collection Type Void Urine Color Yellow Urine Clarity Clear Urine pH 6.0 (<5.0-8.0) Urine Specific [place] Gap >=1.030 (1.000-1.030) Urine Protein Negative mg/dL (NEG-TRACE) Urine Glucose (UA) Negative mg/dL (NEG) Urine Ketones (Stick) Negative mg/dL (NEG) Urine Blood Negative (NEG) Urine Nitrite Negative (NEG) Urine Bilirubin Negative (NEG) Urine Urobilinogen Dipstick 1.0 mg/dL (0.2 mg/dL) Urine Leukocyte Esterase Small (NEG) Urine RBC 0 /HPF (0-2) Urine WBC 1-4 /HPF (0-4) Urine Squamous Epithelial Cells Mod /LPF Urine Bacteria Few /HPF (0-FEW) Urine Mucus Marked /LPF POC Urine HCG, Qualitative Hcg positive (Negative) Microbiology 04/28/20 Wet Prep - Final, Complete Vital Signs: Vital Signs Date Time Temp Pulse Resp B/P (MAP) Pulse Ox O2 Delivery O2 Flow Rate FiO2 04/28/20 18:17 97.9 70 16 112/58 (76) 100 Room Air 97.9 EKG: EKG: [] Radiology/Procedures: Radiology/Procedures: [] Course & Med Decision Making: Course & Med Decision Making Pertinent Labs and Imaging studies reviewed. (See chart for details) This is a 29-year-old female patient presenting to the ED today with vaginal discharge that began 3 days ago. Denies any concerns for STDs. Positive urine hCG, results were communicated to patient. She was disappointed, she states she already has 5 children. She did not want any further work-up on the at this point. Denies any abdominal pain. Denies any vaginal bleeding. Urine analysis noted for small amount of leukocytes though this urine is grossly contaminated. Wet prep positive for BV, discharged on Flagyl. Provided OB for follow-up. Provided return precautions and discharged in stable condition Dragon Disclaimer: Dragon Disclaimer: This electronic medical record was generated, in whole or in part, using a voice recognition dictation system. Departure Departure Impression: Primary Impression: Bacterial vaginosis Additional Impression: state, incidental Disposition: 01 DC HOME SELF CARE/HOMELESS Condition: STABLE Referrals: UNKNOWN PCP NAME (PCP) VEGA PUGA MD Follow-up in 1 week Patient Instructions: ABCs of , Bacterial Vaginosis, [id number] Additional Instructions: You were evaluated in the emergency room for vaginal bleeding, your test is positive. Please start following up with an IMPLEMENTATION LEAD, we provided you a name of one if you need. Start taking vitamins. You were positive for bacterial vaginosis. We put you on antibiotics, ensure you complete them. Come back to the ED at any point symptoms worsen Scripts Metronidazole (FLAGYL) 500 Mg Tablet 1 TAB PO BID, #14 TAB Prov: JUDY ORTIZ APRN 04/28/20 JUDY ORTIZ APRN Apr 28, 2020 20:00
[2020-04-30 20:10] LABS: GC PROBE Negative (Negative)
== END 2020-04-28 20:08 | disposition home or self-care (01) ==
LOC: ER 18:08
DX: O23.591 Infection of other part of genital tract in pregnancy, first trimester (principal); B96.89 Other specified bacterial agents as the cause of diseases classified elsewhere; O99.511 Diseases of the respiratory system complicating pregnancy, first trimester; J45.909 Unspecified asthma, uncomplicated; O99.331 Smoking (tobacco) complicating pregnancy, first trimester; Z3A.00 Weeks of gestation of pregnancy not specified
CPT/HCPCS: 81001; 81025; 87801; 99284; Q0111; 87491; 87591

== ENCOUNTER 2021-01-27 23:48 | Emergency (ER) | payer MEDICARE, OTHER ==
[~2021-01-27] VITALS: Ht 165.1 cm; Wt 52.3 kg
[2021-01-28 01:00] VITALS: BP 112/58
[2021-01-28] MEDS ORDERED: METR500T PO (01:49)
--- NOTE | 2021-01-28 01:51 | PHYS DOC ---
Past Medical History Past Medical History: Asthma, Other Additional Past Medical Histor: RHEMATOID ARTHRITIS Past Surgical History: No Surgical History, Tonsillectomy Smoking Status: Current Every Day Smoker Alcohol Use: None Drug Use: None General Adult EDM: Chief Complaint: vaginal discharge HPI: HPI: 30-year-old female is and presents to the ED with vaginal discharge and a fishy odor and says "I have BV again", she denies any pelvic pain, no fever, chills, no vaginal bleeding, no nausea or vomiting, patient is here requesting a prescription for Flagyl which she says has worked for her in the past, she denies any known history of STDs Review of Systems: Review of Systems: Constitutional: Denies fever or chills. [] Eyes: Denies change in visual acuity. [] HENT: Denies nasal congestion or sore throat. [] Respiratory: Denies cough or shortness of breath. [] Cardiovascular: Denies chest pain or edema. [] GI: Denies abdominal pain, nausea, vomiting, bloody stools or diarrhea. [] : Denies dysuria. [] Positive for vaginal discharge Musculoskeletal: Denies back pain or joint pain. [] Integument: Denies rash. [] Neurologic: Denies headache, focal weakness or sensory changes. [] Endocrine: Denies polyuria or polydipsia. [] Lymphatic: Denies swollen glands. [] Psychiatric: Denies depression or anxiety. [] Heart Score: C/O Chest Pain: No Risk Factors: Risk Factors: DM, Current or recent (<one month) smoker, HTN, HLP, family history of CAD, obesity. Risk Scores: Score 0 - 3: 2.5% MACE over next 6 weeks - Discharge Home Score 4 - 6: 20.3% MACE over next 6 weeks - Admit for Clinical Observation Score 7 - 10: 72.7% MACE over next 6 weeks - Early Invasive Strategies Allergies: Allergies: Allergies Coded Allergies Type Severity Reaction Last Updated Verified No Known Drug Allergies 11/14/14 No Physical Exam: PE: Constitutional: Well developed, well nourished, no acute distress, non-toxic appearance. [] HENT: Normocephalic, atraumatic, bilateral external ears normal, oropharynx moist, no oral exudates, nose normal. [] Eyes: PERRLA, EOMI, conjunctiva normal, no discharge. [] Neck: Normal range of motion, no tenderness, supple, no stridor. [] Cardiovascular:Heart rate regular rhythm, no murmur [] Lungs & Thorax: Bilateral breath sounds clear to auscultation [] Abdomen: Bowel sounds normal, soft, no tenderness, no masses, no pulsatile masses. [] Skin: Warm, dry, no erythema, no rash. [] Back: No tenderness, no CVA tenderness. [] Extremities: No tenderness, no cyanosis, no clubbing, ROM intact, no edema. [] Neurologic: Alert and oriented X 3, normal motor function, normal sensory function, no focal deficits noted. [] Psychologic: Affect normal, judgement normal, mood normal. [] EKG: EKG: [] Radiology/Procedures: Radiology/Procedures: [] Course & Med Decision Making: Course & Med Decision Making Pertinent Labs and Imaging studies reviewed. (See chart for details) [] Patient presented to the ED with vaginal discharge, did not wish to get a pelvic exam or work-up although I do believe that she can follow-up closely with her primary care doctor, the meantime she is requesting a prescription for Flagyl which is not unreasonable especially given the symptomatology and character of her issues this evening, there is no apparent evidence of any emergency medical conditions at this time and I did advise her to follow with her primary care doctor/provider in the next 24 hours and to return to the ER before then if any new or worsening/concerning symptoms had developed Ismael Disclaimer: Ismael Disclaimer: This electronic medical record was generated, in whole or in part, using a voice recognition dictation system. Departure Departure Impression: Primary Impression: Bacterial vaginosis Disposition: HOME / SELF CARE / HOMELESS Condition: GOOD Referrals: NO PCP (PCP) Brionna YAP MD, WILLIAM R MD Patient Instructions: Bacterial Vaginosis Additional Instructions: I am giving you some antibiotics and I want you to follow-up with your primary care doctor in the next 24 hours, return to the ER before follow-up with any new or worsening/concerning symptoms develop Scripts Metronidazole (FLAGYL) 500 Mg Tablet 1 TAB PO TID, #21 TAB Prov: HILTON GRACIA MD 01/28/21 HILTON GRACIA MD Jan 28, 2021 01:51
[2021-01-28] MEDS ORDERED: metroNIDAZOLE 500 MG TABLET PO ONE (02:30)
== END 2021-01-28 02:10 | disposition home or self-care (01) ==
LOC: ER 23:48
DX: N76.0 Acute vaginitis (principal); B96.89 Other specified bacterial agents as the cause of diseases classified elsewhere; J45.909 Unspecified asthma, uncomplicated; M19.90 Unspecified osteoarthritis, unspecified site; F17.200 Nicotine dependence, unspecified, uncomplicated
CPT/HCPCS: 99283

== ENCOUNTER 2021-05-24 09:17 | Emergency (ER) | payer MEDICARE, OTHER ==
[~2021-05-24] VITALS: Ht 157.5 cm; Wt 54.9 kg
--- NOTE | 2021-05-24 09:21 | PHYS DOC ---
Past Medical History Past Medical History: Asthma, Other Additional Past Medical Histor: RHEMATOID ARTHRITIS, BV HISTORY. Past Surgical History: No Surgical History, Tonsillectomy Smoking Status: Current Every Day Smoker Alcohol Use: None Drug Use: None General Adult EDM: Chief Complaint: VAGINAL PROBLEM HPI: HPI: Patient is a 30 year old female who presents with vaginal itching and white discharge. She has history of yeast infections and bacterial vaginosis. She denies any dysuria or urinary symptoms. She denies pelvic or abdominal pain. She denies nausea or vomiting. She denies constipation or diarrhea. She denies fevers or chills. She reports that she frequently gets these symptoms around the time before she starts her menstrual cycle. LMP occurred within the last month. She was unable to get into see her PCP, so she came to the ER. Review of Systems: Review of Systems: Constitutional: Denies fever or chills. [] Respiratory: Denies cough or shortness of breath. [] Cardiovascular: Denies chest pain or edema. [] GI: Denies abdominal pain, nausea, vomiting, diarrhea : Denies dysuria. Denies pelvic pain. Denies vaginal bleeding. Reports vaginal itching and mild white discharge. Musculoskeletal: Denies back pain or joint pain. [] Integument: Denies rash. [] Neurologic: Denies headache, focal weakness or sensory changes. [] Psychiatric: Denies depression or anxiety. [] Heart Score: C/O Chest Pain: No Risk Factors: Risk Factors: DM, Current or recent (<one month) smoker, HTN, HLP, family history of CAD, obesity. Risk Scores: Score 0 - 3: 2.5% MACE over next 6 weeks - Discharge Home Score 4 - 6: 20.3% MACE over next 6 weeks - Admit for Clinical Observation Score 7 - 10: 72.7% MACE over next 6 weeks - Early Invasive Strategies Allergies: Allergies: Allergies Coded Allergies Type Severity Reaction Last Updated Verified No Known Drug Allergies 11/14/14 No Physical Exam: PE: Constitutional: Well developed, well nourished, no acute distress, non-toxic appearance. [] HENT: Normocephalic, atraumatic Cardiovascular: Well perfused appearing, no peripheral edema Lungs & Thorax: Respirations are non-labored Abdomen: Abdomen soft, nondistended, nontender to palpation : No external lesions are noted. There is scant white vaginal discharge. Cervix is clear and nonerythematous, no purulent discharge. No bleeding. Extremities: No edema Neurologic: He is awake, alert, conversant, speech is clear and fluent, ambulatory with a steady gait Psychologic: Affect normal, judgement normal, mood normal. [] EKG: EKG: [] Radiology/Procedures: Radiology/Procedures: [] Course & Med Decision Making: Course & Med Decision Making Pertinent Labs and Imaging studies reviewed. (See chart for details) I discussed the findings, differential diagnosis and plan of care with the patient. She will be treated for bacterial vaginosis. She understands that the remainder for cervical cultures are pending, she should receive notification of any abnormal or positive results. I apologized to the patient for the wait time. I discharged her myself, I discussed strict return precautions. She should follow-up with her PCP. She verbalized understanding peer Ismael Disclaimer: Ismael Disclaimer: This electronic medical record was generated, in whole or in part, using a voice recognition dictation system. Departure Departure Impression: Primary Impression: Bacterial vaginosis Disposition: HOME / SELF CARE / HOMELESS Condition: STABLE Referrals: NO PCP (PCP) Patient Instructions: Bacterial Vaginosis Additional Instructions: Take the full course of antibiotics. Do not drink alcohol with this. Take the medication with food. Return for abdominal pain, fever, uncontrolled vomiting or for any other concerns. Follow up with your primary care doctor. Scripts Metronidazole (METRONIDAZOLE) 500 Mg Tablet 1 TAB PO BID for 7 Days, #14 TAB 0 Refills Prov: BUDDY SERRATO DO 05/24/21 BUDDY SERRATO DO May 24, 2021 09:21
[2021-05-24 10:23] VITALS: BP 140/61
[2021-05-24 10:41] LABS: BILIRUBIN,URINE NEGATIVE (NEG); CLARITY,URINE CLEAR; COLOR,URINE YELLOW; NITRITE,URINE NEGATIVE (NEG); PH,URINE 5.5 (<5.0-8.0); PROTEIN,URINE NEGATIVE (NEG-TRACE); UROBILINOGEN,URINE 0.2 mg/dL (0.2 mg/dL)
[2021-05-24 10:44] LABS: U PREG PATIENT NEGATIVE (NEG)
[2021-05-24] MEDS ORDERED: METR-34 PO (10:46)
[2021-05-24 10:55] LABS: BACTERIA,URINE MODERATE /HPF (0-FEW); RBC,URINE 0 /HPF (0-2)
[2021-05-25 18:09] LABS: GC PROBE Negative (Negative)
== END 2021-05-24 11:00 | disposition home or self-care (01) ==
LOC: ER 09:17
DX: N76.0 Acute vaginitis (principal); B96.89 Other specified bacterial agents as the cause of diseases classified elsewhere; J45.909 Unspecified asthma, uncomplicated; F17.200 Nicotine dependence, unspecified, uncomplicated
CPT/HCPCS: 81001; 81025; 87086; 87491; 87591; 99284; Q0111

== ENCOUNTER 2021-06-02 01:12 | Emergency (ER) | payer MEDICARE, OTHER ==
[~2021-06-02] VITALS: Ht 157.5 cm; Wt 54.5 kg
[2021-06-02 02:20] VITALS: BP 127/63
[2021-06-02] MEDS ORDERED: CIPR2.5D2 EACHEYE (02:44)
--- NOTE | 2021-06-02 02:45 | PHYS DOC ---
Past Medical History Past Medical History: Asthma, Other Additional Past Medical Histor: RHEMATOID ARTHRITIS, BV HISTORY. Past Surgical History: , Tonsillectomy Smoking Status: Current Every Day Smoker Alcohol Use: None Drug Use: None General Adult EDM: Chief Complaint: EYE PROBLEMS HPI: HPI: Patient is a 30 year old female presents with right eye drainage discharge eyelids matted shut in the a.m. x3 days. Patient presents with her 2 kids that have been same symptoms. Review of Systems: Review of Systems: Review of systems: Constitutional symptoms- No fever, no chills. Eyes- Positive Discharge, No Visual Loss Respiratory symptoms- No shortness of breath, No wheezing, No Dyspnea on Exertion Cardiovascular Systems; No chest pain, No Palpitations, No syncope Gastrointestinal symptoms: NO abdominal pain, no nausea, no vomiting or diarrhea. Genitourinary symptoms: No dysuria. Musculoskeletal symptoms: No back pain No extremity pain. NEUROLOGICAL Symptoms: No headache, no generalized weakness; No focal Weakness Skin: No rash. Heart Score: C/O Chest Pain: N/A Risk Factors: Risk Factors: DM, Current or recent (<one month) smoker, HTN, HLP, family history of CAD, obesity. Risk Scores: Score 0 - 3: 2.5% MACE over next 6 weeks - Discharge Home Score 4 - 6: 20.3% MACE over next 6 weeks - Admit for Clinical Observation Score 7 - 10: 72.7% MACE over next 6 weeks - Early Invasive Strategies Allergies: Allergies: Allergies Coded Allergies Type Severity Reaction Last Updated Verified No Known Drug Allergies 05/24/21 No Physical Exam: PE: General: alert, no acute distress. Skin: warm, dry and intact, no erythema, no rash. HENT: bilateral external ears normal, oropharynx moist, nose normal. Head:: Normocephalic, atraumatic. Neck: Trachea midline. Eyes: EOMI, right eye conjunctivitis right eye drainage CARDIOVASCULAR: Regular rate and rhythm RESPIRATORY: No respiratory distress Back: Full range of motion. MUSCULOSKELETAL: Full range of motion of bilateral upper and lower extremities. GASTROINTESTINAL: Abdomen soft without rebound or guarding. NEUROLOGICAL: Alert and noted to person, place and time. No neurological deficits observed Psychiatric: Cooperative. Normal judgment EKG: EKG: [] Radiology/Procedures: Radiology/Procedures: [] Course & Med Decision Making: Course & Med Decision Making Pertinent Labs and Imaging studies reviewed. (See chart for details) [] Ismael Disclaimer: Ismael Disclaimer: This electronic medical record was generated, in whole or in part, using a voice recognition dictation system. Departure Departure Impression: Primary Impression: Conjunctivitis Disposition: HOME / SELF CARE / HOMELESS Condition: STABLE Referrals: NO PCP (PCP) Patient Instructions: Conjunctivitis (Viral and Bacterial) Scripts Ciprofloxacin Hcl (CIPROFLOXACIN HCL) 2.5 Ml Drops 1 DROP EACHEYE QID for 7 Days, #5 ML 0 Refills Prov: CRISELDA JIMENEZ DO 06/02/21 CRISELDA JIMENEZ DO Jun 02, 2021 02:45
== END 2021-06-02 03:17 | disposition home or self-care (01) ==
LOC: ER 01:12
DX: H10.9 Unspecified conjunctivitis (principal); J45.909 Unspecified asthma, uncomplicated; F17.200 Nicotine dependence, unspecified, uncomplicated
CPT/HCPCS: 99283

== ENCOUNTER 2021-07-30 12:37 | Emergency (ER) | payer MEDICARE, OTHER ==
[~2021-07-30] VITALS: Ht 157.5 cm; Wt 54.0 kg
[~2021-07-30 12:37] MED LIST changes: +CIPR2.5D2 EACHEYE
[2021-07-30 12:50] VITALS: BP 115/56
[2021-07-30 14:05] LABS: BILIRUBIN,URINE NEGATIVE (NEG); CLARITY,URINE HAZY; COLOR,URINE YELLOW; NITRITE,URINE NEGATIVE (NEG); PROTEIN,URINE NEGATIVE (NEG-TRACE); UROBILINOGEN,URINE 0.2 mg/dL (0.2 mg/dL)
--- NOTE | 2021-07-30 14:05 | PHYS DOC ---
Past Medical History Past Medical History: Asthma, Other Additional Past Medical Histor: RHEMATOID ARTHRITIS, BV HISTORY. Past Surgical History: No Surgical History, , Tonsillectomy Smoking Status: Current Every Day Smoker Alcohol Use: None Drug Use: None General Adult EDM: Chief Complaint: VAGINAL PROBLEM HPI: HPI: Patient is a 30 year old female who presents with 1 week of white vaginal discharge but without a smell. She states she gets bacterial vaginosis often. She states she has no concerns for STDs. Patient denies abdominal pain, nausea, vomiting, diarrhea, back pain, urinary symptoms, STDs, fever, painful sex. Denies any pain at all. She has a history of bacterial vaginosis, seven living children, rheumatoid arthritis, asthma, C-sections, colectomy, smoking. Review of Systems: Review of Systems: Constitutional: Denies fever or chills. [] Eyes: Denies change in visual acuity. [] HENT: Denies nasal congestion or sore throat. [] Respiratory: Denies cough or shortness of breath. [] Cardiovascular: Denies chest pain or edema. [] GI: Denies abdominal pain, nausea, vomiting, bloody stools or diarrhea. [] : Denies dysuria. + Vaginal discharge [] Musculoskeletal: Denies back pain or joint pain. [] Integument: Denies rash. [] Neurologic: Denies headache, focal weakness or sensory changes. [] Endocrine: Denies polyuria or polydipsia. [] Lymphatic: Denies swollen glands. [] Psychiatric: Denies depression or anxiety. [] Heart Score: C/O Chest Pain: No Allergies: Allergies: Allergies Coded Allergies Type Severity Reaction Last Updated Verified tramadol Allergy Intermediate 06/02/21 Yes Physical Exam: PE: Constitutional: Well developed, well nourished, no acute distress, non-toxic appearance. [] HENT: Normocephalic, atraumatic, bilateral external ears normal, oropharynx moist, no oral exudates, nose normal. [] Eyes: PERRLA, EOMI, conjunctiva normal, no discharge. [] Neck: Normal range of motion, no tenderness, supple, no stridor. [] Cardiovascular:Heart rate regular rhythm, no murmur [] Lungs & Thorax: Bilateral breath sounds clear to auscultation [] Abdomen: Bowel sounds normal, soft, no tenderness, no masses, no pulsatile masses. [] Skin: Warm, dry, no erythema, no rash. [] Back: No tenderness, no CVA tenderness. [] Extremities: No tenderness, no cyanosis, no clubbing, ROM intact, no edema. [] Neurologic: Alert and oriented X 3, normal motor function, normal sensory function, no focal deficits noted. [] Psychologic: Affect normal, judgement normal, mood normal. [] Normal physical exam Current Patient Data: Labs: Laboratory Tests Test 07/30/21 13:22 POC Urine HCG, Qualitative Hcg negative (Negative) Vital Signs: Vital Signs Date Time Temp Pulse Resp B/P (MAP) Pulse Ox O2 Delivery O2 Flow Rate FiO2 07/30/21 12:50 98.3 100 12 115/56 (75) 100 Room Air 98.3 EKG: EKG: [] Radiology/Procedures: Radiology/Procedures: [] Course & Med Decision Making: Course & Med Decision Making Pertinent Labs and Imaging studies reviewed. (See chart for details) See HPI. Alert and oriented x4. Ambulatory steady gait. Speaks in full clear sentences. Abdomen is soft and nontender. Skin pink warm and dry. Patient educated that chlamydia and gonorrhea will come back in 48 hours and she will be called only if something comes back positive. Patient refusing any kind of prophylactic treatment for STDs today. Pelvic Exam: Bath Steward present Abdomen: Nontender External Genitalia: Normal Skin Speculum: Normal vaginal mucosa, white cervical discharge Bimanual: No adnexal masses or tenderness, No CMT [] Dragon Disclaimer: Dragon Disclaimer: This electronic medical record was generated, in whole or in part, using a voice recognition dictation system. Departure Departure Impression: Primary Impression: UTI (lower urinary tract infection) Disposition: HOME / SELF CARE / HOMELESS Condition: STABLE Referrals: NO PCP (PCP) DANIEL TITUS MD Patient Instructions: Urinary Tract Infection Additional Instructions: Follow-up with your primary care or a deployment manager as soon as possible. Drink plenty of fluids. I did send off a chlamydia and gonorrhea swab and you will be called in 48 hours if something is positive only. Take medication as prescribed and with food. If anything worsens return to the emergency room. Scripts Cephalexin (KEFLEX) 500 Mg Capsule 1 CAP PO TID, #21 CAP Prov: BAFUS,RAZ M [employer] INTERN 07/30/21 RAZ LINDA APRN Jul 30, 2021 14:05
[2021-07-30 14:08] LABS: BACTERIA,URINE 0 /HPF (0-FEW); WBC,URINE TNTC /HPF (0-4)
[2021-07-30] MEDS ORDERED: cefTRIAXone IM 500 MG VIAL. IM ONE (14:30)
[2021-07-30] MEDS ORDERED: CEPH500C PO (14:31)
[2021-08-01 18:09] LABS: GC PROBE Negative (Negative)
== END 2021-07-30 14:30 | disposition home or self-care (01) ==
LOC: ER 12:37
DX: N39.0 Urinary tract infection, site not specified (principal); J45.909 Unspecified asthma, uncomplicated; F17.200 Nicotine dependence, unspecified, uncomplicated; Z88.6 Allergy status to analgesic agent
CPT/HCPCS: 81001; 81025; 87086; 87491; 87591; 96372; 99284; J0696; Q0111